=== PATIENT | male | born 1945 | race Caucasian/White ===

== ENCOUNTER 2017-04-11 06:15 | Inpatient (IN) | payer MEDICARE ==
--- NOTE | 2017-04-03 10:57 | HP ---
DATE OF ADMISSION: 04/11/2017. DATE OF OFFICE VISIT: 04/03/2017. SURGEON: Dr. Indira Diaz * (DICTATED BY JUDSON RAMSEY) PROCEDURE: Left total knee arthroplasty. CHIEF COMPLAINT: Left knee pain. HISTORY OF PRESENT ILLNESS: Mr. Vera is a 72-year-old gentleman with complaints of left knee pain secondary to end-stage osteoarthritis. He has failed conservative management and elected to proceed with a left hemiarthroplasty which is scheduled for 04/11/[address] Diaz. PAST MEDICAL HISTORY: Heart murmur and high cholesterol. PAST SURGICAL HISTORY: Tonsillectomy, inguinal hernia repair, and unknown right shoulder surgery. CURRENT MEDICATIONS: Aspirin 325 mg daily. ALLERGIES: None. FAMILY HISTORY: Cancer. SOCIAL HISTORY: He is a 72-year-old gentleman who lives with his . He does not smoke or use drugs. He uses occasional alcohol. REVIEW OF SYSTEMS: A complete 14 point review of systems is reviewed with the patient. It is all negative or noncontributory. PHYSICAL EXAMINATION GENERAL: He is a well-developed, well-nourished, in no acute distress. VITAL SIGNS: He stands 5'11" tall, weighs 180 pounds. Blood pressure 112/70, heart rate 60. HEENT: Normocephalic, atraumatic. NECK: Supple. No palpable lymph nodes. CARDIO: Regular rate and rhythm. PULMONARY: Lungs are clear to auscultation bilaterally. ABDOMEN: Soft, nontender, nondistended. MUSCULOSKELETAL: Left lower extremity: Skin is intact without open wounds or abrasions. There is a moderate joint effusion. 15 to 120 degrees of flexion. 2+ dorsalis pedis pulses. He has intact sensation. His lower extremity muscle group strengths are intact at 5/5. NEUROLOGIC: He is alert and oriented times three. Cranial nerve II through XII are intact. ASSESSMENT AND PLAN: Mr. Vera is a 72-year-old gentleman with complaints of left knee pain secondary to end-stage osteoarthritis. He has failed conservative management and has elected to proceed with a left total knee arthroplasty which is scheduled for 04/11/[address] Diaz discussed the risks and the benefits of the surgery at today's visit and all his questions were answered. Coumadin, Colace and Percocet were sent to his pharmacy for postoperative pain control and DVT prophylaxis. He will follow-up two weeks after the surgery. JUDSON RAMSEY [id number]/[facility] #: [id number] MTDKenroy
[~2017-04-11 06:15] MED LIST: Buffered Lidocaine 0.9% SYRIN* 5 ML/SYR SYRINGE INTRADERM ONE; Dexamethasone IV* 4 MG/ML 1 ML (4 MG) IV SLOW PU ONE; Famotidine TAB* 20 MG PO ONE
[2017-04-11] MEDS ORDERED: Dexamethasone IV* 4 MG/ML 1 ML (4 MG) ONE (06:45)
[2017-04-11] MEDS ORDERED: Famotidine IV* 10 MG/ML 2 ML (20 mg) ONE (06:45)
[2017-04-11] MEDS ORDERED: Buffered Lidocaine 0.9% SYRIN* 5 ML/SYR SYRINGE ONE (06:46)
[2017-04-11] MEDS ORDERED: ceFAZolin 2 GM PREMIX (*) 2 GM/50 ML BAG IVPB ONE (06:46)
[2017-04-11] MEDS ORDERED: KETAMINE HCL* 50 MG/ML 10 ML VIAL ONE (07:11)
[2017-04-11] MEDS ORDERED: Morphine PF AMP (0.5MG/ML)* 5 MG/10 ML AMP ONE (07:11)
[2017-04-11] MEDS ORDERED: Propofol* 10 MG/ML 20 ML BTL IV PUSH ONE (07:11)
[2017-04-11] MEDS ORDERED: Midazolam* 1 MG/ML 10 ML VIAL (10 MG) ONE (07:11)
[2017-04-11] MEDS ORDERED: Ondansetron INJ* 2 MG/ML VIAL ONE (07:11)
[2017-04-11] MEDS ORDERED: Bupivacaine 0.5% SDV PF* 30 ML VIAL ONE (07:12)
[2017-04-11] MEDS ORDERED: Phenylephrine INJ* 10 MG/ML 1 ML VIAL (10 MG) ONE (07:14)
[2017-04-11] MEDS ORDERED: Naloxone* 0.4 MG/ML 1 ML VIAL IV PRN (08:23)
[2017-04-11] MEDS ORDERED: Ondansetron INJ* 2 MG/ML VIAL IV PRN ×2 (08:23→09:10)
[2017-04-11] MEDS ORDERED: Nalbuphine* 20 MG/ML 1 ML VIAL IV PRN ×2 (08:23)
[2017-04-11] MEDS ORDERED: DiMENhydriNATE IV* 50 MG/ML VIAL IV PUSH PRN (08:23)
[2017-04-11] MEDS ORDERED: oxyCODONE/Acetamin 5/325 MG* TAB PO PRN ×3 (08:23→09:10)
[2017-04-11] MEDS ORDERED: Ropivacaine* 300 MG in NS 0.9% 250 ML* 240 ML EPIDURAL SCH (09:00)
[2017-04-11] MEDS ORDERED: Scopolamine 1.5 mg* PATCH TRANSDERM SCH (09:00)
[2017-04-11] MEDS ORDERED: Polyethylene Glycol 3350* 17 GM PACKET PO PRN (09:10)
[2017-04-11] MEDS ORDERED: Morphine INJ* 2 MG/ML 1 ML SYRINGE (TWO MG - NEW SYRINGE VERSION) IV PRN (09:10)
[2017-04-11] MEDS ORDERED: diPHENhydraMINE PO* 25 MG PO PRN (09:10)
[2017-04-11] MEDS ORDERED: Temazepam CAP* 15 MG PO PRN (09:10)
[2017-04-11] MEDS ORDERED: oxyCODONE TAB* 5 MG TAB PO PRN (09:10)
[2017-04-11] MEDS ORDERED: Acetaminophen TAB* 325 MG PO PRN (09:10)
[2017-04-11] MEDS ORDERED: diPHENhydraMINE IV* 50 MG/ML 1 ml VIAL (BENADRYL) IV PRN (09:10)
[2017-04-11] MEDS ORDERED: Bisacodyl SUPP* 10 MG SUPP PR PRN (09:10)
[2017-04-11] MEDS ORDERED: Ondansetron TAB* 4 MG PO PRN (09:10)
[2017-04-11] MEDS ORDERED: Cyclobenzaprine TAB* 10 MG PO PRN (09:19)
--- NOTE | 2017-04-11 11:45 | RAD ---
Indication: Immediate postop exam following LEFT total knee replacement. Comparison: October 21, 2016 radiographs. Technique: Portable AP and cross table lateral views LEFT knee. Report: Status post total knee replacement. Anterior surgical drain in place. Post-op fluid and gas is seen in the joint space and anterior subcutaneous tissues. Alignment is anatomic. No periprosthetic fracture evident. IMPRESSION: Unremarkable immediate postoperative appearance following LEFT knee replacement.
[2017-04-11] MEDS ORDERED: ceFAZolin 1 GM VIAL(*) 1 GM in NS 0.9% 50 ML* 50 ML IVPB SCH (16:00)
[2017-04-11] MEDS: oxyCODONE/Acetamin 5/325 MG* TAB PO PRN (16:38)
[2017-04-11] MEDS: ceFAZolin 1 GM in Dextrose (*) 1 GM/50 ML BAG IVPB SCH ×2 (16:38→23:50)
[2017-04-11] MEDS ORDERED: Warfarin TAB(*) 6 MG PO ONE (17:00)
[2017-04-11] MEDS: Magnesium Hydroxide LIQ* 30 ML UDC PO SCH (21:23)
[2017-04-11] MEDS: Docusate CAP* 100 MG PO SCH (21:23)
--- NOTE | 2017-04-12 03:13 | OP ---
DATE OF OPERATION: 04/11/17 - ROOM #348 DATE OF : 49 ATTENDING SURGEON: Indira Diaz MD. SHIP LINER: JUDSON Rehman. Ms. Estrada did help throughout the procedure with preparation of the leg, wound retraction, manipulation of the knee and wound closure. ANESTHESIOLOGIST: Dr. Rajput. ANESTHESIA: Spinal. PRE-OP DIAGNOSIS: Severe endstage degenerative osteoarthritis of the left knee joint. POST-OP DIAGNOSIS: Severe endstage degenerative osteoarthritis of the left knee joint. OPERATIVE PROCEDURE: Left total knee arthroplasty. TOURNIQUET TIME: 67 minutes. COMPLICATIONS: None. TOURNIQUET TIME: 67 minutes. COMPLICATIONS: None. ESTIMATED BLOOD LOSS: 300 cc. SPECIMEN: Left knee bone and cartilage sent to Pathology. HARDWARE USED: This is [employer] cemented total knee arthroplasty hardware. Two packages of Simplex bone cement. For the femur, a size 7 left posterior stabilized Legion femoral component. For the tibia, a size 6, left tibial baseplate. For the insert, a 9 mm posterior stabilized articular insert size 5/6 and for the patella, 35 mm, 3-peg all poly patella. BRIEF HISTORY/INDICATION: Mr. Vera is a 72-year-old gentleman with years of increasingly severe left knee pain. Radiographs confirm [id number] arthritis. He had a significant flexion deformity. He had failed conservative treatment including anti-inflammatories, pain medications, physical therapy, and intraarticular injections. He elected to undergo left total knee arthroplasty due to continued pain and decreased quality of life. Informed consent was obtained from the patient. He understood the risks of the surgery included but were not limited to bleeding, infection, damage to nearby structures, continued pain, need for further surgery, intraoperative fracture, nerve palsy, hardware failure or loosening, knee stiffness, loss of motion, stroke, heart attack, blood clot, and . He wished to proceed. INTRAOPERATIVE FINDINGS: Intraoperatively, the patient was noted to have a 20- degree flexion contracture, which was corrected to full extension by the end of the case. He had severe end-stage arthritis with tricompartmental loss of cartilage. DESCRIPTION OF PROCEDURE: Mr. Vera was identified in the preanesthesia unit. His left lower extremity was marked as the correct operative site. Informed consent was signed and placed in the chart. The patient was taken to the operating room and placed under spinal anesthesia. A Barajas catheter was placed. Tourniquet was placed on the left thigh. Left lower extremity was prepped and draped in the usual sterile fashion. Preop time-out was made to correctly identify the patient's side and site. Appropriate perioperative antibiotics were given within 1 hour of incision. Tourniquet was inflated. Total tourniquet time for this procedure was 67 minutes. A 14-cm midline incision was made with a 10 blade and carried down to the extensor mechanism. A new 10 blade was used to make a standard medial para- patellar arthrotomy. Electrocautery was used to subperiosteally elevate the soft tissue off the superomedial tibia to the midsagittal plane. The knee was flexed up. Anterior horn of the lateral meniscus and ACL were sharply released. A drill was used to enter the distal femur. Intramedullary distal femoral cutting guide was pinned into position. 9 mm of distal femoral bone was carefully removed using an oscillating saw. External rotation guide was pinned on the distal femur and the femur was sized to a size 7. A size 7 multi- cutting jig was pinned on the distal femur. Oscillating saw was used to make the appropriate chamfer cuts. The bony fragments were carefully removed. PCL was completely released. The tibia was subluxed anteriorly. Extramedullary tibial cutting guide was pinned on the proximal tibia. Oscillating saw was used to make the proximal tibial cut perpendicular to the mechanical axis of the tibia. The bone was carefully removed. The knee was brought into extension and the spacer block had good fit with the knee in full extension. There was good medial and lateral ligamentous balancing. Flexion and extension gaps were well balanced. The knee was flexed up. Lamina supervisor electric was placed both medially and laterally. Any remaining meniscus was carefully removed using electrocautery. Posterior osteophytes were removed using a curved osteotome. A tibial tray and drop jared were placed to confirm a satisfactory tibial cut and this was confirmed. A size 7 left femoral trial was impacted on to the distal femur and had good fit. The box for the posterior stabilized implant was prepared using a reamer and box cut osteotome. Next, a size 6 tibial tray trial with a 9-mm insert trial was placed. The knee was taken through a range of motion. The knee had full extension and 130 degrees of flexion with good patellofemoral tracking. The patella was everted. 9 mm of patellar bone and cartilage was carefully removed using an oscillating saw. The patella was sized to a size 35. Three peg holes were drilled through the size 35 guide. A 35 trial patella was placed and the knee was taken through a range of motion and the patella had good tracking. All trials were carefully removed. The tibia was subluxed anteriorly and sized to a size 6. Proximal tibia was prepared using a size-6 keel punch. All bony cut surfaces were copiously irrigated with sterile saline and dried. The final implants were cemented into place starting with the tibia, followed by the femur , and last the patella. A 9-mm insert trial was placed while the knee was taken to full extension. Tourniquet was turned down at 67 minutes. The knee was copiously irrigated with sterile saline. Electrocautery was used to obtain meticulous hemostasis. Once the cement had fully cured, the insert trial was removed. Any excess cement was carefully removed from around the implants and capsule. Final implant chosen was a 9-mm posterior stabilized articular insert, size 5/6. This was locked into position on the tibial tray. Stability of the insert was checked and rechecked and noted to be stable. The knee was copiously irrigated with sterile saline. The extensor mechanism was closed over a medium Hemovac drain using interrupted #1 Vicryls. The rest of the incision was closed in a layered fashion using 0 and 2-0 Vicryls. Skin was closed using running 3-0 nylon suture. Sterile Xeroform, 4x4s and Webril were used to cover the incision. Steve wrap and cold pack were placed over this. The patient's anesthesia was reversed without difficulty. He was taken to the PACU in stable condition. Intended weight-bearing will be weightbearing as tolerated. Intended DVT prophylaxis will be Coumadin with a Lovenox bridge. [id number]/[facility] #: [id number] [facility]LY[facility]
[2017-04-12 05:33] LABS: Hematocrit 34 % (42-52); Hemoglobin 11.8 g/dl (14.0-18.0)
[2017-04-12 05:43] LABS: BUN/Creatinine Ratio 16.7 (8-20); Calcium 8.4 mg/dL (8.6-10.3); EGFR African American 116.2 (>60); EGFR Non-African American 90.3 (>60); Potassium 3.8 mmol/L (3.5-5.0)
[2017-04-12] MEDS: Magnesium Hydroxide LIQ* 30 ML UDC PO SCH ×2 (08:19→20:45)
[2017-04-12] MEDS: Docusate CAP* 100 MG PO SCH ×2 (08:19→20:45)
[2017-04-12] MEDS: ceFAZolin 1 GM in Dextrose (*) 1 GM/50 ML BAG IVPB SCH (08:19)
[2017-04-12] MEDS: Vitamin THERAPEUTIC TAB PO SCH (08:19)
--- NOTE | 2017-04-12 09:00 | PN ---
Progress Note - Progress Note Date of Service: 04/12/17 SOAP: Subjective: []Patient seen OOB in chair following CAT call due to near syncopal episode after his walk with PT while sitting in a chair. Hospitalist monitoring telemetry today and checking trops. EKG unchanged from prior. He was seen by Dr. Rodgers. He reports he now feels well without LLE pain, chest pain, shortness of breath, dizziness or nausea. Objective: [] Vital Signs Temp 98.1 F 04/12/17 07:36 Pulse 53 04/12/17 07:36 Resp 16 04/12/17 08:19 BP 114/59 04/12/17 07:36 Pulse Ox 97 04/12/17 08:00 Intake & Output 04/11/17 04/12/17 04/12/17 18:59 06:59 18:59 Intake Total 2500 2753 225 Output Total 1000 2050 Balance 1500 703 225 Intake: IV Fluids 2300 1003 ABX - CEFAZOLIN 55 LR 2250 948 NS 50ML, Cefazolin 2G 50 Oral 200 1750 225 Output: Barajas 700 2050 Estimated Blood Loss 300 Other: # Bowel Movements 0 Laboratory Last Values Hgb 11.8 g/dl (14.0-18.0) L 04/12/17 05:13 Hct 34 % (42-52) L 04/12/17 05:13 INR (Anticoag Therapy) 0.94 (0.77-1.02) 04/12/17 05:13 Sodium 138 mmol/L (133-145) 04/12/17 05:13 Potassium 3.8 mmol/L (3.5-5.0) 04/12/17 05:13 Chloride 103 mmol/L (101-111) 04/12/17 05:13 Carbon Dioxide 30 mmol/L (22-32) 04/12/17 05:13 Anion Gap 5 mmol/L (2-11) 04/12/17 05:13 BUN 14 mg/dL (6-24) 04/12/17 05:13 Creatinine 0.84 mg/dL (0.67-1.17) 04/12/17 05:13 Est GFR ( Amer) 116.2 (>60) 04/12/17 05:13 Est GFR (Non-Af Amer) 90.3 (>60) 04/12/17 05:13 BUN/Creatinine Ratio 16.7 (8-20) 04/12/17 05:13 Glucose 133 mg/dL (70-100) H 04/12/17 05:13 Calcium 8.4 mg/dL (8.6-10.3) L 04/12/17 05:13 General: Well appearing, no acute distress. LLE: Dressing CDI. NO surrounding erythema. Drain pulled without complication this morning by Dr. Diaz Bilateral lower extremities: Calves supple and nontender without erythema, edema or palpable cords. Negative Lisa's sign. Sensation intact distally. DF/ PF intact. DP/PT pulses 2+. Assessment: []POD 1 s/p left total knee arthroplasty 04/10, Dr. Diaz Plan: []WBAT PT/OT Lovenox, coumadin 8 mg today Appreciate monitoring after CAT call by hospitalist service Dressing change 04/13
--- NOTE | 2017-04-12 10:07 | PN ---
Progress Note - Progress Note Date of Service: 04/12/17 Note: Responded to CAT call of pt who became near syncopal:diaphoretic , weak, hypotensive, at the end of his walk with PT. Pt denies CP/OB , LOC. Had a similar episode when he tore a ligament in his knee in the past. During my eval his BP rhiannon from 80 to 105 within 5 min of sitting in a chair. 500 ml of IVF bolus was ordered. Exam: comfortable, in NAD, aAOx3 Resp: CTA b/l CV:RRR, no M Legs: no edema, left knee post op Neuro : intact: motor 5/5 b/l A/P: vaso-vagal near syncope in a postop Pt will monitor on telem today, check trops EKG unchanged from prior Dr. Diaz notified.
[2017-04-12] MEDS ORDERED: NS 0.9% 500 ML* 500 ML IV ONE (11:00)
[2017-04-12] MEDS: Enoxaparin(*) 40 MG/0.4 ML SYR SUBCUT SCH (11:33)
[2017-04-12] MEDS: oxyCODONE/Acetamin 5/325 MG* TAB PO PRN ×3 (13:05→23:47)
[2017-04-12] MEDS ORDERED: Warfarin TAB(*) 4 MG PO ONE (17:00)
[2017-04-13 07:16] LABS: Hematocrit 33 % (42-52); Hemoglobin 11.3 g/dl (14.0-18.0); Mean Platelet Volume 7 um3 (7.4-10.4)
[2017-04-13] MEDS: oxyCODONE/Acetamin 5/325 MG* TAB PO PRN ×2 (08:44→12:53)
[2017-04-13] MEDS: Magnesium Hydroxide LIQ* 30 ML UDC PO SCH (08:45)
[2017-04-13] MEDS: Vitamin THERAPEUTIC TAB PO SCH (08:45)
[2017-04-13] MEDS: Docusate CAP* 100 MG PO SCH (08:45)
--- NOTE | 2017-04-13 09:02 | PN ---
Progress Note - Progress Note Date of Service: 04/13/17 SOAP: Subjective: []Seen at bedside today. Denies pain of operative site, chest pain, shortness of breath, dizziness or nausea. Objective: [] Vital Signs Temp 98.6 F 04/13/17 07:22 Pulse 68 04/13/17 07:22 Resp 18 04/13/17 08:44 BP 144/67 04/13/17 07:22 Pulse Ox 97 04/13/17 08:00 Intake & Output 04/12/17 04/13/17 04/13/17 18:59 06:59 18:59 Intake Total 2920 1475 120 Output Total 925 650 120 Balance 1994 825 0 Intake: IV Fluids 1790 ABX - CEFAZOLIN 108 LR 1182 NS (0.9%) 500 Oral 1130 1475 120 Output: Urine 925 650 120 Other: Estimated Void Large Date of Last Bowel 04/12/17 Movement # Bowel Movements 1 1 Estimated Stool Amount Medium Large # Voids 1 Laboratory Last Values Hgb 11.3 g/dl (14.0-18.0) L 04/13/17 07:00 Hct 33 % (42-52) L 04/13/17 07:00 Plt Count 160 10^3/ul (150-450) 04/13/17 07:00 MPV 7 um3 (7.4-10.4) L 04/13/17 07:00 INR (Anticoag Therapy) 1.11 (0.77-1.02) H 04/13/17 07:00 Sodium 138 mmol/L (133-145) 04/12/17 05:13 Potassium 3.8 mmol/L (3.5-5.0) 04/12/17 05:13 Chloride 103 mmol/L (101-111) 04/12/17 05:13 Carbon Dioxide 30 mmol/L (22-32) 04/12/17 05:13 Anion Gap 5 mmol/L (2-11) 04/12/17 05:13 BUN 14 mg/dL (6-24) 04/12/17 05:13 Creatinine 0.84 mg/dL (0.67-1.17) 04/12/17 05:13 Est GFR ( Amer) 116.2 (>60) 04/12/17 05:13 Est GFR (Non-Af Amer) 90.3 (>60) 04/12/17 05:13 BUN/Creatinine Ratio 16.7 (8-20) 04/12/17 05:13 Glucose 133 mg/dL (70-100) H 04/12/17 05:13 Calcium 8.4 mg/dL (8.6-10.3) L 04/12/17 05:13 Troponin I 0.01 ng/mL (<0.04) 04/12/17 16:38 General: Well appearing, no acute distress. LLE: Dressing changed by Dr. Diaz this morning with no noted complication. Appears CDI at this time. Bilateral lower extremities: Calves supple and nontender without erythema, edema or palpable cords. Negative Lisa's sign. Sensation intact distally. DF/ PF intact. DP/PT pulses 2+. Assessment: []POD 2 s/p left total knee arthroplasty 04/10, Dr. Diaz Plan: []WBAT PT/OT Lovenox, coumadin 6 mg today DC to home today, patient preference over [facility].
[2017-04-13] MEDS: Enoxaparin(*) 40 MG/0.4 ML SYR SUBCUT SCH (11:46)
[2017-04-13 11:57] VITALS: BP 147/65
[2017-04-14] MEDS ORDERED: Scopolamine PATCH Remove* 1 NOTE MISC PATCH OFF ONE (08:27)
--- NOTE | 2017-04-16 03:31 | DS ---
AMENDED REPORT NOW INCLUDES COSIGNER DESIGNATION - ESIGNED BEFORE ADJUSTMENT DISCHARGE SUMMARY: DATE OF ADMISSION: 04/11/17 DATE OF DISCHARGE: 04/13/17 DATE OF SURGERY: 04/11/17 ATTENDING SURGEON AND PROVIDER: Indira Diaz MD * (DICTATED BY JUDSON EDWARDS) OPERATIONS SUPPORT SPECIALIST: JUDSON Rehman PREOPERATIVE DIAGNOSIS: Severe end-stage degenerative osteoarthritis of the left knee joint. OPERATIVE PROCEDURE: Left total knee arthroplasty. HISTORY: Mr. Vera is a 72-year-old gentleman with years of increasingly severe left knee pain. Radiographs confirmed ogpl-[id number] arthritis. He had significant flexion deformity. He failed conservative treatment including anti- inflammatories, pain medications, physical therapy, and intraarticular injections. He therefore elected to undergo a left total knee arthroplasty. HOSPITAL COURSE: Mr. Vera was admitted to [facility] on 04/11/17 and he underwent a left total knee arthroplasty without complication. He recovered briefly in the PACU and then was transferred to short stay surgical unit in stable condition. On postoperative day 1, his hemoglobin was 11.8, hematocrit 34, INR 0.94. He participated well in physical therapy. Directly, after physical therapy while sitting in a chair, he had a near syncopal episode. The CAT team was called and the patient was evaluated by Dr. Rodgers. An EKG was done, which was unchanged from previous. Telemetry monitoring was in place and troponins were ordered. Troponins were found to be within normal limits. Later that day, the patient again participated with physical therapy with no recurrence of this event. He did have minor dizziness though he stated that when he sat down and took a break, he felt completely well. He reported no associated chest pain, shortness of breath, dizziness, nausea, lightheadedness after he was seen after the presyncopal episode. He also denies any left lower extremity pain. He did not fall during this event. PHYSICAL EXAMINATION: On exam, he was well appearing, in no acute distress. His dressing was clean, dry, and intact. There was no surrounding erythema. Drain was pulled with no complications. Calves were supple, nontender, without erythema, edema or palpable cord. He had a negative Homans sign bilaterally. Sensation was intact distally. Dorsiflexion and plantar flexion were intact. Dorsalis pedis and posterior tibial pulses were 2+. On postoperative day #2, hemoglobin was 11.3, hematocrit was 33, INR was 1.11. On exam, the patient was well appearing, in no acute distress. His dressing was changed by Dr. Diaz with no complications. Bilateral lower extremities, calves supple, nontender, with-out erythema, edema or palpable cord. Negative Homans sign. Sensation intact distally. Dorsiflexion and plantarflexion intact. Dorsalis pedis and posterior tibial pulses were 2+. During Mr. Vera's stay, he remained afebrile with T-max of 99.2. He did have an episode following the presyncopal episode with a pulse rate down into the 30s, blood pressure 84/43. On the day of discharge, his vital signs were temperature 98.6, pulse rate 72, respiratory rate 18, oxygen saturation 97%, blood pressure 147/65. He was deemed medically and orthopedically stable for discharge home with services. DISCHARGE MEDICATIONS: 1. Acetaminophen 650 mg p.o. q.4 hours p.r.n., not to exceed 4000 mg per day from all sources. 2. Docusate 100 mg tablet p.o. t.i.d. p.r.n. 3. Percocet 5/325 mg 1 to 2 tabs q.4 hours p.r.n., maximum daily dose of 10. CONDITION ON DISCHARGE: Stable. DISCHARGE INSTRUCTIONS: The patient was discharged to home. He will be weightbearing as tolerated. He may shower postop day #3, no bathing, swimming, or submerging wound. He will call the orthopedic office with increased drainage , redness, increased pain or fever. He will go to the ER with shortness of breath or chest pain. He may consume a regular diet as tolerated. He will use stool softeners and call the office if no bowel motion within 48 hours. Continue physical therapy and occupational therapy exercises at home. His visiting nurse will do wound checks as well as INR, blood draws on Mondays and . His Coumadin dosing until his next INR draw will be 6 mg on 04/13/17 , 2 mg on 04/14/17, 4 mg on 04/15/17, 2 mg on 04/16/17, and INR be kept on 04/17. Pain control on Percocet 5/325 mg one to two tabs every 4 to 6 hours as needed for pain, not to exceed 10 per day. Please note Percocet also contains Tylenol, max daily dose of Tylenol is 4000 mg. JOEY RENDON, JUDSON [id number]/[facility] #: [id number] [facility]
== END 2017-04-13 15:25 | disposition home or self-care (01) | DRG 470 ==
LOC: AA 06:15 → SSU 13:50
PROVIDERS: ADMIT Orthopaedic Surgery Adult Reconstructive Orthopaedic Surgery; ATTEND Orthopaedic Surgery Adult Reconstructive Orthopaedic Surgery
PROC: 0SRD0J9 Replacement of Left Knee Joint with Synthetic Substitute, Cemented, Open Approach (ICD-10-PCS; principal; 2017-04-11 07:30)
DX: M17.12 Unilateral primary osteoarthritis, left knee (principal); I95.9 Hypotension, unspecified; E78.00 Pure hypercholesterolemia, unspecified; R55 Syncope and collapse; R42 Dizziness and giddiness; Z72.89 Other problems related to lifestyle
CPT/HCPCS: 36415; 80048; 84484; 85014; 85018; 85049; 85610; 93005; 94760; A9270-GY; C1776; J0690; J1100; J1650; J2250; J2405; J2704; J2795